=== PATIENT | male | born 1970 | race Caucasian/White ===

== ENCOUNTER 2019-09-29 08:52 | Observation (INO) | payer OTHER ==
[~2019-09-29] VITALS: Ht 182.9 cm; Wt 113.4 kg
[~2019-09-29 08:52] MED LIST: ALBU90OI6 INH; CLIN150 PO; DULO30 PO; HYDACE5 PO; HYDCHL25 PO; LISI20 PO; LISI5 PO; RXSULTRIDS PO; SPIHYD PO
[2019-09-29 09:39] LABS: BASOPHILS ABSOLUTE AUTO 0.02 K/mm3 (0.00-0.23); BASOPHILS PERCENT AUTO 0 % (0-2); EOSINOPHILS PERCENT AUTO 0 % (0-6); Hematocrit 44.7 % (37.0-53.0); Hemoglobin 14.9 g/dL (13.5-17.5); IMMATURE GRAN ABSOLUTE AUTO 0.09 K/mm3 (0.00-0.10); IMMATURE GRAN PERCENT AUTO 1 % (0-1); LYMPHOCYTES ABSOLUTE AUTO 1.07 K/mm3 (0.84-5.20); LYMPHOCYTES PERCENT AUTO 6 % (21-46); MONOCYTES ABSOLUTE AUTO 0.81 K/mm3 (0.16-1.47); MONOCYTES PERCENT AUTO 5 % (4-13); Mean Corpuscular HGB 28.5 pg (26.0-34.0); Mean Corpuscular HGB Conc 33.3 g/dL (31.5-36.5); Mean Corpuscular Volume 86 fL (80-100); Mean Platelet Volume 11.8 fL (9.1-12.4); NEUTROPHILS ABSOLUTE AUTO 15.33 K/mm3 (1.96-9.15); NEUTROPHILS PERCENT AUTO 89 % (41-73); Platelet Count 220 K/mm3 (150-400); RDW Coefficient Variation 14.5 % (11.7-14.2); RDW Standard Deviation 44.9 fL (35.1-46.3); Red Blood Cell Count 5.22 M/mm3 (4.30-5.90); White Blood Cell Count 17.32 K/mm3 (4.00-11.30)
[2019-09-29 09:59] LABS: Alanine Aminotransfer (ALT/SGP 69 U/L (12-78); Albumin, Blood 4.3 g/dL (3.4-5.0); Albumin/Globulin Ratio 1.1 (0.8-1.8); Alk Phos 73 U/L (50-136); Anion Gap 8 mmol/L (6-16); Aspartate Aminotrans (AST/SGOT 58 U/L (12-37); Bilirubin, Total 0.5 mg/dL (0.1-1.0); Blood Urea Nitrogen 20 mg/dL (8-24); Bun/Creatinine Ratio 28.8 (12.0-20.0); CO2, Blood 26 mmol/L (21-32); Calcium, Blood 9.1 mg/dL (8.5-10.1); Chloride, Blood 108 mmol/L (98-108); Creatinine, Blood 0.69 mg/dL (0.60-1.20); Globulin, Blood 3.9 g/dL (2.2-4.0); Glomerular Filtration Rate >60 (60-); Glucose, Blood 114 mg/dL (70-99); Potassium, Blood 3.5 mmol/L (3.5-5.5); Sodium, Blood 142 mmol/L (136-145); Total Protein, Blood 8.2 g/dL (6.4-8.2)
[2019-09-29] MEDS ORDERED: PROAIR RESPICL90 MCG INH (10:09)
[2019-09-29] MEDS ORDERED: FLUT1DIS5 INH (10:09)
[2019-09-29] MEDS ORDERED: PARO20 PO (10:10)
[2019-09-29] MEDS ORDERED: ZESTORETIC 20-251 EA PO (10:10)
[2019-09-29] MEDS ORDERED: SYNTHROID175 MCG PO (10:10)
[2019-09-29] MEDS ORDERED: TAMS.4ER PO (10:10)
[2019-09-29] MEDS ORDERED: TOPROL XL25 MG PO (10:11)
[2019-09-29] MEDS ORDERED: PRAV20 PO (10:11)
[2019-09-29 10:22] LABS: Influenza A Negative (NEGATIVE); Influenza B Negative (NEGATIVE)
[2019-09-29 16:53] LABS: Source, Urine Clean Catch
[2019-09-29 17:06] LABS: Bilirubin, Urine Neg (Neg); Blood, Urine 1+ (Neg); Glucose Qualitative, Urine Neg (Neg); Ketones, Urine Neg (Neg); Leukocyte Esterase, Urine Neg (Neg); Nitrite, Urine Neg (Neg); Protein, Urine 2+ (Neg); Urobilinogen, Urine NORM (Normal); pH, Urine 6.5 (5.0-8.0)
[2019-09-29 17:14] LABS: Appearance, Urine Clear (Clear); Color, Urine Yellow (P-Yellow)
[2019-09-29 17:15] LABS: Bacteria Not Seen /hpf; Red Blood Cells, Urine 0-2 /hpf (0-2); Squamous Epithelial Cells Not Seen /hpf (Few); White Blood Cells, Urine 0-2 /hpf (0-5)
--- NOTE | 2019-09-29 17:47 | NUR ---
SHIFT SUMMARY PATIENT DENIES NAUSEA OR NEED FOR PAIN MED AT THIS TIME. UP TO BR, VOIDED AND SPECIMEN SENT. IVF INFUSING PER ORDER, SITE CLEAR.TALKING WITH VISITORS. CONT TO MONITOR. AWAITING BED AVAILABILITY AT [facility].
--- NOTE | 2019-09-29 21:18 | NUR ---
PATIENT AWAKE AND UNDERSTANDS THAT WE ARE AWAITING FOR A ROOM AT [facility]. PAIN AND NAUSEA CONTROLLED WITH DILAUDID AND PHENERGAN. NO BOWEL TONES. NO BM SINCE ADMISSION. CALL LIGHT IN REACH.
[2019-09-30 04:54] LABS: BASOPHILS ABSOLUTE AUTO 0.06 K/mm3 (0.00-0.23); BASOPHILS PERCENT AUTO 1 % (0-2); EOSINOPHILS ABSOLUTE AUTO 0.19 K/mm3 (0.00-0.68); EOSINOPHILS PERCENT AUTO 1 % (0-6); Hematocrit 42.6 % (37.0-53.0); Hemoglobin 13.8 g/dL (13.5-17.5); IMMATURE GRAN ABSOLUTE AUTO 0.05 K/mm3 (0.00-0.10); IMMATURE GRAN PERCENT AUTO 0 % (0-1); LYMPHOCYTES ABSOLUTE AUTO 2.47 K/mm3 (0.84-5.20); LYMPHOCYTES PERCENT AUTO 19 % (21-46); MONOCYTES ABSOLUTE AUTO 1.28 K/mm3 (0.16-1.47); MONOCYTES PERCENT AUTO 10 % (4-13); Mean Corpuscular HGB 28.3 pg (26.0-34.0); Mean Corpuscular HGB Conc 32.4 g/dL (31.5-36.5); Mean Corpuscular Volume 87 fL (80-100); Mean Platelet Volume 11.9 fL (9.1-12.4); NEUTROPHILS ABSOLUTE AUTO 9.12 K/mm3 (1.96-9.15); NEUTROPHILS PERCENT AUTO 69 % (41-73); Platelet Count 177 K/mm3 (150-400); RDW Coefficient Variation 14.6 % (11.7-14.2); RDW Standard Deviation 46.5 fL (35.1-46.3); Red Blood Cell Count 4.88 M/mm3 (4.30-5.90); White Blood Cell Count 13.17 K/mm3 (4.00-11.30)
[2019-09-30 05:09] LABS: Anion Gap 7 mmol/L (6-16); Blood Urea Nitrogen 19 mg/dL (8-24); Bun/Creatinine Ratio 27.8 (12.0-20.0); CO2, Blood 26 mmol/L (21-32); Calcium, Blood 8.4 mg/dL (8.5-10.1); Chloride, Blood 111 mmol/L (98-108); Creatinine, Blood 0.68 mg/dL (0.60-1.20); Glomerular Filtration Rate >60 (60-); Glucose, Blood 81 mg/dL (70-99); Potassium, Blood 3.4 mmol/L (3.5-5.5); Sodium, Blood 144 mmol/L (136-145)
--- NOTE | 2019-09-30 16:02 | NUR ---
SHIFT SUMMARY PT HAS DONE WELL THIS SHIFT. MEDICATED FOR PAIN AND NAUSEA ONCE THIS SHIFT PER EMAR. PT STARTED ON CLEAR LIQUIDS AT THIS TIME HE IS AWAITING TRANSFER TO [facility] WHICH POSSIBLY WILL BE A FEW DAYS DUE TO BED AVAILABILITY. AMBULATING INDENDENTLY IN ROOM AND HALLWAYS.
--- NOTE | 2019-09-30 21:54 | NUR ---
TRANSPORT HERE, REPORT GIVEN TO [facility] PROVIDING TRANSPORT. WRITTEN CONSENT ON CHART FOR TRANSPORT. PT UP TO [facility], SELF-TRANSFERRED WITH STANDBY ASSIST. VSS. PT SIPPING ON CLEAR FLUIDS, DENIES ANY FURTHER NEEDS AT THIS TIME. BELONGINGS TAKEN WITH PT.
== END 2019-09-30 21:30 | disposition short-term general hospital (02) ==
LOC: ER 08:52 → MEDS 08:53 → SURS 14:31
PROVIDERS: Physician Assistant; ADMIT Surgery
DX: K43.6 Other and unspecified ventral hernia with obstruction, without gangrene (principal); I10 Essential (primary) hypertension; E03.9 Hypothyroidism, unspecified; E66.9 Obesity, unspecified; Z88.5 Allergy status to narcotic agent; Z79.899 Other long term (current) drug therapy; Z68.33 Body mass index [BMI] 33.0-33.9, adult
CPT/HCPCS: 36415; 74177; 80048; 80053; 81001; 83605; 83690; 85025; 87804; 94640; 94760; 96361; 96365; 96366; 96372; 96374; 96375; 96376; 99285-25; G0378; J0694; J1170; J1650; J2550; J2765; J7120; Q9967

== ENCOUNTER 2022-04-28 10:35 | Day surgery (SDC) | payer OTHER ==
[~2022-04-28] VITALS: Ht 182.9 cm; Wt 114.4 kg
[~2022-04-28 10:35] MED LIST changes: +FLUT1DIS5 INH; +PARO20 PO; +PRAV20 PO; +PROAIR RESPICL90 MCG INH; +SYNTHROID175 MCG PO; +TAMS.4ER PO; +TOPROL XL25 MG PO; +ZESTORETIC 20-251 EA PO
[2022-04-28] MEDS ORDERED: Amlodipine Bes2.5 MG (10:55)
[2022-04-28] MEDS ORDERED: MONT4 (10:58)
--- NOTE | 2022-04-28 11:34 | NUR ---
04/28/22 1134 ROCHELLE GARCIA FOUR ATTEMPTS AT IV. FIRST ATTEMPT BY MA IN RIGHT HAND UNABLE TO ADVANCE. SECOND ATTEMPT BY MA IN LEFT HAND INFILTRATED. THIRD ATTEMPT BY RN IN RIGHT HAND UNABLE TO ADVANCE. FOURTH ATTEMPT BY RN IN AC SUCCESSFUL.
== END 2022-04-28 13:10 | disposition home or self-care (01) ==
LOC: ORSCSDS 10:35
PROVIDERS: Student in an Organized Health Care Education/Training Program
PROC: 0DBK8ZX Excision of Ascending Colon, Via Natural or Artificial Opening Endoscopic, Diagnostic (ICD-10-PCS; principal; 2022-04-28 12:00)
PROC: 0DBL8ZX Excision of Transverse Colon, Via Natural or Artificial Opening Endoscopic, Diagnostic (ICD-10-PCS; principal; 2022-04-28 12:00)
PROC: 0DBM8ZX Excision of Descending Colon, Via Natural or Artificial Opening Endoscopic, Diagnostic (ICD-10-PCS; principal; 2022-04-28 12:00)
PROC: 0DBP8ZX Excision of Rectum, Via Natural or Artificial Opening Endoscopic, Diagnostic (ICD-10-PCS; principal; 2022-04-28 12:00)
DX: K59.00 Constipation, unspecified (principal); D12.3 Benign neoplasm of transverse colon; D12.8 Benign neoplasm of rectum; K63.5 Polyp of colon; K64.8 Other hemorrhoids; K57.30 Diverticulosis of large intestine without perforation or abscess without bleeding; E78.5 Hyperlipidemia, unspecified; E03.9 Hypothyroidism, unspecified; I47.1 Supraventricular tachycardia; J45.909 Unspecified asthma, uncomplicated; Z79.899 Other long term (current) drug therapy; E66.9 Obesity, unspecified; Z68.35 Body mass index [BMI] 35.0-35.9, adult
CPT/HCPCS: 88305; J2704; J7120